=== PATIENT | male | born 2000 | race Caucasian/White ===

== ENCOUNTER 2024-06-05 10:00 | Outpatient (CLI) | payer MEDICAID, SELFPAY ==
[2024-06-05 15:06] LABS: Basophils # 0.1 K/mm3 (0-0.2); Basophils % 0.7 % (0.1-2.0); Eosinophils # 0.3 K/mm3 (0.0-0.4); Eosinophils % 3.6 % (0.1-12.0); Hematocrit 42.9 % (42.0-52.0); Hemoglobin 14.8 g/dL (14.1-18.0); Lymphocytes # 2.7 K/mm3 (0.7-4.5); Lymphocytes % 37.5 % (10-50); Mean Corpuscular HGB Conc 34.5 g/dL (31.8-35.4); Mean Corpuscular Volume 89.7 fl (80-94); Mean Platelet Volume 9.7 fl (7.4-10.4); Monocytes # 0.5 K/mm3 (0.1-1.0); Monocytes % 6.7 % (1.7-9.3); Neutrophils # 3.6 K/mm3 (1.8-7.8); Neutrophils % 51.1 % (37.0-80.0); Platelet Count 229 K/mm3 (142-424); Red Blood Count 4.78 M/mm3 (4.60-6.20); Red Cell Distribution Width 11.7 % (11.5-17.5); White Blood Count 7.1 K/mm3 (4.8-10.8)
[2024-06-05 15:16] LABS: D-Dimer < 0.25 ug/mL (0.0-0.5)
[2024-06-05 15:21] LABS: Albumin Level 4.9 g/dl (3.5-5.0); Chloride 106 mmol/L (98-107); Potassium 4.5 mmoL/L (3.5-5.1); Sodium 141 mmol/L (136-145)
[2024-06-05 15:24] LABS: Alanine Aminotransferase 15 U/L (12-78); Alkaline Phosphatase 68 U/L (38-126); Anion Gap 12.5 mEq/L (5-15); Aspartate Amino Transferase 25 U/L (17-59); Bilirubin,Direct 0.1 mg/dl (0.0-0.4); Bilirubin,Indirect 0.8 mg/dL (0.0-0.9); Bilirubin,Total 0.9 mg/dl (0.2-1.3); Bilirubin,Unconjugated 0.8 mg/dL (0.0-1.1); Blood Urea Nitrogen 16 mg/dl (9-20); Carbon Dioxide 27 mmol/L (22.0-30.0); Cholesterol 150 mg/dl (140-200); Estimated Glomerular Filt Rate 92 ml/min (>60); GFR (African American) 111 ML/MIN (>60); Glucose 79 mg/dl (74-100); Total Protein,Serum 6.8 g/dl (6.3-8.2); Triglycerides 74 mg/dl (30-150); VLDL Cholesterol 15 mg/dL (0-40)
[2024-06-05 15:25] LABS: Chol/HDL Ratio 3.9 (1-3.5); HDL Cholesterol 38 mg/dl (40-60); Magnesium 1.8 mg/dl (1.6-2.3)
[2024-06-05 15:38] LABS: Direct LDL Cholesterol 95.08 mg/dL (100-129)
[2024-06-05 15:46] LABS: Free T4 (Free Thyroxine) 0.91 ng/dl (0.78-2.19)
[2024-06-05 15:55] LABS: Microscopic, Urine URINE MICROSCOPIC (MICROSCOPIC)
[2024-06-05 15:59] LABS: Thyroid Stimulating Hormone 1.02 uIU/mL (0.465-4.68)
[2024-06-05 16:14] LABS: Appearance,Urine SL CLOUDY (Clear); Bilirubin,Urine Negative (Negative); Blood, Urine Negative (Negative); Color,Urine YELLOW (Yellow); Glucose,Urine (UA) Negative (Negative); Ketones,Urine Negative (Negative); Leukocyte Esterase,Urine Negative (Negative); Nitrate,Urine Negative (Negative); Protein,Urine Negative (Negative); Urobilinogen,Urine 0.2 EU/dl (0.2)
[2024-06-05 16:40] LABS: Amorphous Sediment,Urine 3+ /lpf; Bacteria,Urine Trace /lpf; Squamous Epithelial Cell,Urine Occasional #/hpf (0-5); WBC,Urine Occasional #/hpf (0-3)
[2024-06-08 00:20] LABS: Mycoplasma genitalium, NAA Negative (Negative); Neisseria gonorrhoeae, NAA Negative (Negative); Trich vag by NAA Negative (Negative)
== END 2024-06-05 23:59 | disposition home or self-care (01) ==
LOC: LAB 06-06 09:28
PROVIDERS: Internal Medicine; PCP Physician Assistant; Visit Provider Urology
DX: R55 Syncope and collapse (principal); R06.00 Dyspnea, unspecified; R35.0 Frequency of micturition; R30.0 Dysuria; N20.0 Calculus of kidney; Z82.41 Family history of sudden cardiac death
CPT/HCPCS: 36415; 80048; 80061; 80076; 81001; 83735; 84439; 84443; 85025; 85378; 87086; 87491; 87563; 87591; 87661

== ENCOUNTER 2024-06-13 10:59 | Outpatient (CLI) | payer MEDICAID, SELFPAY ==
--- NOTE | 2024-06-13 11:00 | XR_ITS ---
FINAL REPORT CLINICAL HISTORY: Renal stones FINDINGS: ABDOMEN SINGLE VIEW There is a nonspecific, nonobstructive bowel gas pattern. No abnormal dilatation is identified. There is a moderate amount of retained stool throughout the colon. There is no abnormal calcification. IMPRESSION: Moderate stool burden. No renal stones identified. Reviewed, Interpreted and Dictated by Sim Mcclellan MD Transcribed by Sayra Reina Authenticated and [facility]
--- NOTE | 2024-06-13 11:00 | US_ITS ---
FINAL REPORT CLINICAL HISTORY: .dysuria FINDINGS: RENAL ULTRASOUND Ultrasound images of the kidneys were obtained. The right kidney measures 9.0 cm in length. It is normal echogenicity. There is no hydronephrosis. There is a cyst in the lower pole of the right kidney measuring 1.2 cm. The left kidney measures 10.7 cm in length. It is normal echogenicity. There is no hydronephrosis. The spleen measures in the upper limits of normal in size at 13.1 cm. IMPRESSION: Right renal cyst. Spleen in the upper limits of normal in size Reviewed, Interpreted and Dictated by Sim Mcclellan MD Transcribed by Sayra Reina Authenticated and [facility]
== END 2024-06-13 23:59 | disposition home or self-care (01) ==
LOC: RAD 11:00
PROVIDERS: PCP Physician Assistant; Visit Provider Urology
DX: N20.0 Calculus of kidney (principal); R35.0 Frequency of micturition; R30.0 Dysuria
CPT/HCPCS: 74018; 76770

== ENCOUNTER 2024-06-22 11:17 | Outpatient (CLI) | payer MEDICAID, SELFPAY ==
--- NOTE | 2024-06-22 11:26 | CT_ITS ---
APPROVED REPORT Credit Report Checker: CLINICAL INDICATION Chest Pain TECHNIQUE Image Acquisition: A 128 slice MDCT scanner ([employer] In[employer] Medicinea View) was used for data acquisition. A noncontrast coronary calcium scan was performed. A CT attenuation threshold of 130 Hounsfield units (HU) was used for the detection of calcium in contiguous voxels of 1 sq mm in area to be counted as individual lesions. Bolus tracking in the ascending aorta with a threshold of 180 HU was performed. Immediately afterwards, ECG synchronized cardiac CT was then performed from the cardiac base to apex using retrospective gating with ECG tube current modulation. A total of 85 mL of Isovue 370 mg/mL contrast medium was administered at 5 mL/sec followed by a saline flush using a biphasic injection protocol. A tube voltage of 120 KVp was used. The patient received the following medications prior to the cardiac CT. 0.8 mg of sublingual nitroglycerin The average heart rate at the time of acquisition was 49 bpm and regular. Image Reconstruction Transaxial images were reconstructed at 0.67 mm slide thickness. Data was reviewed interactively on an advanced workstation capable of 2 and 3-dimensional displays in all conventional reconstruction formats, including multiplanar reformations, maximum intensity projections, curved multiplanar reformations, and volume rendered reconstructions. When applicable, selected routine images describing the relevant coronary anatomy and pathology were saved and sent to PACS. Complications None Technical Quality Overall image quality was good. Coronary artery opacification was adequate. Total DLP (Dose-Length Product) is 1425.1 mGy-cm. The reported value represents the total of one or more individual components during the CT acquisition of this date and at this time, and as such, the same value may appear in more than one CT report depending on the interpreting/reporting physicians. COMPARISON None FINDINGS CT Coronary Calcium Scoring LMA (Left Main Artery) = 0 LAD (Left Anterior Descending) = 0 LCX (Left Coronary Circumflex) = 0 RCA (Right Coronary Artery) = 0 Total Calcium Score = 0 using the AJ-130 method. The interpretation of the calcium heart score is based on the following continuum*: 0 = no calcified plaque detected (risk of coronary artery disease is very low ??? less than 5%) 1-10 = calcium detected in extremely minimal levels (risk of coronary diseases is still low ??? less than 10%) 11-100 = mild levels of plaque detected with certainty (mild or minimal narrowing of heart arteries is likely) 101-400 = definite,at least moderate levels of plaque detected (relatively high risk of a heart attack within 3-5 years) >401-999 = extensive levels of plaque detected (high risk of heart attack, high levels of vascular disease are present, high likelihood of at least one significant coronary narrowing) *The calcium heart score quantifies the burden of coronary calcification/plaque in the coronary arteries. The calcium heart score is not able to evaluate the presence or burden of non-calcified (i.e. soft) plaque. There is no identifiable calcification in the aortic valve, mitral annulus or mitral valve, pericardium, or myocardium. Coronary CT Angiography The coronary arterial system is right dominant. Quantitative Stenosis Grading: Left Main (LM): The left main originates normally from the left sinus of Valsalva. The LM bifurcates into the left anterior descending artery and left circumflex artery. The LM is patent with no evidence of atherosclerosis. Left Anterior Descending (LAD) and Diagonal Branches: The LAD gives off 3 diagonal branch(es). The LAD and its branches are patent with no evidence of atherosclerosis. There is no evidence of LAD-myocardial bridge. Left Circumflex (LCX) and Obtuse Marginals (OM): The LCX gives off 1 Obtuse Marginal (OM) branch(es). The LCX and its branches are patent with no evidence of atherosclerosis. Right Coronary Artery (RCA): The RCA originates normally from the right sinus of Valsalva. The RCA gives off a posterior descending artery (PDA) and posterolateral (PL) branches. The RCA and its branches are patent with no evidence of atherosclerosis. Non-Coronary Cardiac Findings: Analysis of the left ventricular (LV) structure and function was performed after 3-D reconstruction of the LV from axial images, with user-corrected automatic contouring for assessment of LV volumes and user-defined reconstruction from oblique planes for measurement of 3-D cardiac structure and function. -The left ventricle systolic function is normal. -There is no left atrial appendage filling defect. Two right pulmonary veins and two left pulmonary veins drain normally into the left atrium. -No pericardial thickening or calcification. -Central and branch pulmonary arteries in the [id number] are unremarkable. -Thoracic aorta within the visualized thoracic aortic-branches in the [id number] is unremarkable. Extracardiac Structures No significant extra-cardiac findings. Note, however, that this study is focused on the cardiac findings. IMPRESSION -Absence of coronary calcification with an Agatston score = 0 using the AJ-130 method. -No evidence of significant flow-limiting atherosclerosis of the coronary arteries. -No evidence of coronary anomalies or myocardial bridges. -CAD-RADS 0. Management recommendations per ACC/AHA guidelines*, as clinically appropriate. *Recommendations: CAD RADS 0: Reassurance. Consider non-atherosclerotic causes of chest pain. CAD RADS 1: Consider non-atherosclerotic causes of chest pain. Consider preventive therapy and risk factor modification. CAD RADS 2: Consider non-atherosclerotic causes of chest pain. Consider preventive therapy and risk factor modification, particularly for patients with nonobstructive plaque in multiple segments. CAD RADS 3: Consider further functional testing. Consider symptom-guided anti-ischemic and preventive pharmacotherapy as well as risk factor modification per published guideline statements. CAD RADS 4A: Consider further functional testing or invasive coronary angiography with revascularization per published guideline statements. Consider symptom-guided anti-ischemic and preventive pharmacotherapy as well as risk factor modification per published guideline statements. CAD RADS 4B: Invasive coronary angiography recommended with revascularization per published guideline statements. Consider symptom-guided anti-ischemic and preventive pharmacotherapy as well as risk factor modification per published guideline statements. CAD RADS 5: Consider invasive angiography and/or viability assessment with revascularization per published guideline statements. Consider symptom-guided anti-ischemic and preventive pharmacotherapy as well as risk factor modification per published guideline statements. CRITICAL RESULT None COMMUNICATION Per this written report The coronary and cardiac findings of this CCTA were reviewed, reported, and signed by Juan F Hare MD (Planner/Scheduler) Conclusion Electronically signed by : Christin Hare MD 06/26/2024 00:29:28
[2024-06-22 11:53] VITALS: BMI 19.9
[2024-06-22 11:54] VITALS: BP 108/69; PULSE 45; RESP 15; TEMP 36.1; O2SAT 100
[2024-06-22 12:05] VITALS: BP 132/84; PULSE 57; RESP 18; O2SAT 100
[2024-06-22] MEDS: NITROGLYCERIN 0.4MG SL TABLET SL (12:05)
[2024-06-22 12:15] VITALS: BP 102/59; PULSE 57; RESP 18; O2SAT 100
[2024-06-22] MEDS: 0.9 % SODIUM CHLORIDE 50 ML VIAL IV (13:18)
[2024-06-22] MEDS: IOPAMIDOL-370 (76%);100ML BOTTLE 85 ML IV (13:19)
[2024-06-22] MEDS: SODIUM CHLORIDE 0.9% 10ML SYR (RAD ONLY) 10 ML IV (13:19)
== END 2024-06-22 23:59 | disposition home or self-care (01) ==
LOC: RAD 11:18
PROVIDERS: PCP Physician Assistant; Visit Provider Internal Medicine
DX: R07.89 Other chest pain (principal); R55 Syncope and collapse; Z82.41 Family history of sudden cardiac death
CPT/HCPCS: 75574; Q9967

== ENCOUNTER 2024-07-04 11:19 | Outpatient (CLI) | payer MEDICAID, SELFPAY ==
--- NOTE | 2024-07-04 | CA_ITS ---
APPROVED REPORT Exam: Exercise Treadmill Technologist: Martina Das Ht: 7 ft 11 in Wt: 141 lbs BSA: 2.25 m2 HR: 54 bpm BP: 114/64 mmHg Stress Test Details Test: Exercise stress testing was performed using a Herminio protocol. HR Resting HR: 54 bpm Max Heart Rate (APMHR): 196 bpm Max HR Achieved: 174 bpm Target HR (85% APMHR): 167 bpm % of APMHR: 89 Recovery HR: 93 bpm HR response to stress: Normal HR response to stress BP Resting BP: 114.0/64.0 mmHg Max BP: 150.0/76.0 mmHg Recovery BP: 139.0/70.0 mmHg BP response to stress: Normal blood pressure response to stress. ECG Resting ECG: Normal sinus rhythm Stress EC.[address] depression Clinical Exercise duration: 11:00 min Exercise capacity: 11.8 METs Overall Exercise Capacity for Age: Average Stress ECG Conclusion Patient walked 11 minutes. Test stopped due to shortness of air, leg fatigue. METs 11.8 Symptoms: No chest pain Arrhythmias/Ectopy: None ST-T Changes: < 1.[address] segment changes. Conclusion: Max HR 174 at peak stress. Good HR and BP augmentation with exercise (no evidence of chronotropic incompetence). Average exercise capacity for age and sex matched peers No evidence of ischemia on ECG at peak stress Electronically signed by : Christin Hare MD 07/05/2024 12:04:15
== END 2024-07-04 23:59 | disposition home or self-care (01) ==
LOC: RT 11:19
PROVIDERS: PCP Physician Assistant; Visit Provider Internal Medicine
DX: R55 Syncope and collapse (principal); R06.00 Dyspnea, unspecified; Z82.41 Family history of sudden cardiac death
CPT/HCPCS: 93017; 93018

== ENCOUNTER 2024-07-12 09:08 | Outpatient (CLI) | payer MEDICAID, SELFPAY ==
--- NOTE | 2024-07-12 | CA_ITS ---
APPROVED REPORT EXAM: Comprehensive 2D, Doppler, and color-flow Echocardiogram Airplane Pilot: Tamiko Flores, RT(R) Ht: 5 ft 11 in Wt: 141lbs BSA: 1.82 BP: 111/61 mmHg Indications: CP, smoker, SOB, family history of sudden cardiac . Ordered as a bubble study. Echo Enhancing Agent Indication: Rule out Shunt Agent(s) / Amount(s) Used: Agitated Saline 20 cc 2D Dimensions LVEF (Rangel's) 63.30 % M: 52 - 72 LV Volume 101.10 mL M: 62 - 150 LV Volume Index 55.5 mL/m2 M: 34 - 74 LA Volume 14.80 mL LA Volume Index 8.13 mL/m2 (M/F) 16-34 EF AP4 62.40 % EF AP2 64.5 % EF BP 63.3 % GL Strain -20.1 % M-Mode Dimensions RVDd 2.35 cm (0.9-2.6) LA Diam 3.03 cm (1.9-4.0) LVDd 4.45 cm (3.5-5.7) LVDs 3.31 cm (3.5-5.7) IVSd 0.67 cm (0.6-1.1) PWd 0.67 cm (0.6-1.1) EF (Teich) 50.60% FS 25.60% EDV (Teich) 90.10 mL TAPSE 1.41 (<1.7) ESV (Teich) 44.50 mL LV Diastology E Decel Time 210 (160-240 msec) E/A Ratio 2.4 Mitral Valve MV E Max Lv. 88.0 (40-130 cm/s) MV A Velocity 37.0 (40-130 cm/s) E/A Ratio 2.39 MV PHT 62.0 ms Left Ventricle The left ventricle is normal size. The left ventricular systolic function is normal. The left ventricular ejection fraction is within the normal range. There is normal left ventricular wall thickness. There is normal LV segmental wall motion. The left ventricular diastolic function is normal. LVEF is 60%. Right Ventricle The right ventricle is normal size. The right ventricular systolic function is normal. Atria The left atrium size is normal. The right atrium size is normal. There is no Doppler evidence of interatrial shunt. Agitated saline administration demonstrates no evidence of interatrial shunt. Aortic Valve The aortic valve is normal in structure. There is no aortic valvular stenosis. No aortic regurgitation is present. Mitral Valve The mitral valve is normal in structure. No evidence of mitral valve stenosis. There is no mitral valve regurgitation noted. Tricuspid Valve Tricuspid valve is grossly normal in structure and function. Trace tricuspid regurgitation. There is insufficient TR jet to estimate RVSP. Pulmonic Valve The pulmonary valve is normal in structure. Trace pulmonic regurgitation. Great Vessels The aortic root is normal in size. IVC is normal in size and collapses >50% with inspiration. Pericardium There is no pericardial effusion. Other Information Study Quality: Adequate Conclusion Normal biventricular systolic function. No significant valvular stenosis or regurgitation. There is no Doppler evidence of interatrial shunt. Agitated saline administration demonstrates no evidence of interatrial shunt. Electronically signed by : Christin Hare MD 07/18/2024 11:58:16
== END 2024-07-12 23:59 | disposition home or self-care (01) ==
LOC: RT 09:08
PROVIDERS: PCP Physician Assistant; Visit Provider Internal Medicine
DX: R55 Syncope and collapse (principal); R06.00 Dyspnea, unspecified; Z82.41 Family history of sudden cardiac death
CPT/HCPCS: 93306

== ENCOUNTER 2024-07-27 11:01 | Day surgery (SDC) | payer MEDICAID, SELFPAY ==
[2024-07-27 11:38] VITALS: BP 105/60; PULSE 51; RESP 16; TEMP 36.7; O2SAT 99; BMI 19.5
[2024-07-27] MEDS: LACTATED RINGERS 1000ML 1,000 ML 50 ML IV (11:51)
--- NOTE | 2024-07-27 12:11 | EXP.ANES.CKL ---
[facility] Disclaimer: The information contained in this section may have been updated after the patient was seen, as this information can be updated by other users. Medical History Kidney stone Diverticulitis History of gastroesophageal reflux (GERD) Allergies History of anemia Dyspnea Syncope Family history of sudden cardiac in mother Surgical History History of surgery History of tonsillectomy H/O ureteroscopy Family History Other Family history of myocardial infarction Social History Smoking Status: Current some day smoker alcohol intake: never substance use type: denies use current occupational status: employed Travel in the last 8 weeks: None caffeine: Yes [facility] Anesthesia Checklist Patient Identification Patient Identification: Arm Band Structural Data Admitted From: Home Planned Operative Procedure/s: EGD Consent for Planned Operative Procedure(s) Verified: Yes Verified Documents: Surgical Consent and History and Physical NPO Status Verified Time NPO: 00:00 Additional verifications Anesthesia Reactions: No Hx Blood Transfusions: No Blood Transfusion Reaction: No Airway Assessment Mallampati Score:: Class II C-Spine Mobility Assessed: Yes TMJ Mobility Assessed: Yes Dentition: Good Dentition Neurological Assessment Level of Consciousness: Awake, Alert and Appropriate Anesthesia Plan Anesthesia Risk discussed: Yes Anesthesia Plan: Verified ASA Class: II Anesthesia Type: MAC
--- NOTE | 2024-07-27 12:19 | P.HP_ITS ---
History of Present Illness *Admission Date: 07/27/24 *History of present illness: Mr. Saldivar is a 24-year-old gentleman who is here for diagnostic EGD secondary to epigastric abdominal pain, nausea, vomiting and reflux. He also has some constipation and left lower quadrant pain. 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 The examination is deemed medically necessary for diagnostic EGD. The patient has been seen, interviewed and examined prior to the procedure by both myself and the anesthesia provider. [facility] Disclaimer: The information contained in this section may have been updated after the p jerry was seen, as this information can be updated by other users. Medical History (Updated 07/27/24 @ 12:21 by Zay Dubon II, MD) Kidney stone Diverticulitis History of gastroesophageal reflux (GERD) Allergies History of anemia Dyspnea Syncope Family history of sudden cardiac in mother Surgical History History of surgery History of tonsillectomy H/O ureteroscopy Family History Other Family history of myocardial infarction Social History (Updated 07/27/24 @ 12:12 by Maciej Parmar CRNA) Smoking Status: Current some day smoker alcohol intake: never substance use type: denies use current occupational status: employed Travel in the last 8 weeks: None caffeine: Yes Have you lived/traveled outside [place] in past 30 days?: No Contact w/someone who lives/traveled outside US past 30 days?: No Exposure to someone with infectious disease in past 14 days?: No Do you have a fever (greater than 100.4 F or 38 C)?: No Have you tested positive for COVID-19: No Exposed to someone with COVID-19 in past 14 days?: No Do you have a sore throat?: No Do you have a cough?: No Do you have any weakness?: No Are you experiencing any nausea/vomitting?: No Do you have any diarrhea?: No Are you experiencing any unusual bleeding?: No Do you have any muscle aches/pain?: No Do you have any abdominal pain?: No Are you experiencing loss of taste or smell?: No Other Medical History Have you received the Flu Vaccine for this season: No Have you received the Pneumonia Vaccine: No Review of Systems Review of Systems Review of systems (narrative): Negative *Cardiovascular Comments: Negative *Gastrointestinal Comments: Negative *Genitourinary Comments: Negative *Musculoskeletal Comments: Negative *Neurologic Comments: Negative Meds Home Medications and Allergies Home Medications ?Medication ?Instructions ?Recorded ?Confirmed ?Type cholecalciferol (vitamin D3) 1,250 1,250 mcg PO WEEKLY 06/05/24 07/27/24 History mcg (50,000 unit) capsule cholecalciferol (vitamin D3) 50 50 mcg PO DAILY 06/05/24 07/27/24 History mcg (2,000 unit) capsule oxybutynin chloride 10 mg 10 mg PO DAILY 90 days #90 tabs 07/24/24 07/27/24 Rx tablet,extended release 24 hr tamsulosin 0.4 mg capsule (Flomax) 0.4 mg PO DAILY 90 days #90 caps 07/24/24 07/27/24 Rx New Prescriptions to Start Prescriptions: Allergies Allergy/AdvReac Type Severity Reaction Status Date / Time Penicillins Allergy Mild Fatigued Verified 07/27/24 11:36 Exam Data for Last 24 hours Vital signs and Labs for Last 24 Hours: Temp Pulse Resp BP Pulse Ox O2 Del Method 98.0 F 51 L 16 105/60 L 99 Room Air 07/27/24 11:38 07/27/24 11:38 07/27/24 11:38 07/27/24 11:38 07/27/24 11:38 07/27/24 11:38 I & O for Last 24 hours: Intake & Output 07/24/24 07/25/24 07/26/24 07/27/24 23:59 23:59 23:59 23:59 Weight 140 lb *Routine HEENT Exam Head: Present normocephalic Eye: Present EOMI and PERRL ENT: Present mucous membranes moist *Routine Neck Exam Neck: Present supple *Routine Respiratory Exam Respiratory: Present CTA bilaterally *Routine Cardiovascular Exam Cardiovascular: Present RRR *Routine Abdominal Exam Abdominal: Present soft and normoactive bowel sounds; Absent tenderness *Routine Rectal Exam Rectal:: deferred *Routine Genitalia Exam Genitalia:: deferred *Routine Extremities Exam Extremities: Absent cyanosis, clubbing or edema *Routine Skin Exam Skin: Present warm; Absent rash *Routine Neurological Exam Neurological: Present alert and oriented X3 Assessment and Plan *Assessment and plan (1) Epigastric pain: Status: Acute Category: Medical Code(s): R10.13 - Epigastric pain (2) Nausea & vomiting: Status: Acute Category: Medical Code(s): R11.2 - Nausea with vomiting, unspecified (3) Atypical chest pain: Status: Acute Category: Medical Code(s): R07.89 - Other chest pain (4) Bloating: Status: Acute Category: Medical Code(s): R14.0 - Abdominal distension (gaseous) (5) GERD (gastroesophageal reflux disease): Status: Acute Category: Medical Code(s): K21.9 - Gastro-esophageal reflux disease without esophagitis Plan A/P: 1. Epigastric abdominal pain with nausea, vomiting, bloating and dyspepsia is the preprocedural diagnosis. The patient will be anesthetized/sedated using MAC sedation. The patient has been seen and examined. Cardiac and lung assessment prior to the examination is stable. Proceed with planned diagnostic EGD
[2024-07-27 12:30] VITALS: O2SAT 100
--- NOTE | 2024-07-27 12:30 | P.PCN_ITS ---
[facility] Procedure Note Date: 07/27/24 Procedure Note:: Upper Endoscopy Procedure Report: Esophagogastroduodenoscopy with cold biopsies and TTS balloon dilation Endoscopost: Zay Dubon II, MD Referring Physician: Diana Mckeon PA-C Date of Procedure: July 27, 2024 Equipment: Olympus GIF 190 standard upper endoscope Sedation: MAC sedation Indications: Mr. Saldivar is a 24-year-old gentleman with dyspepsia. He reports epigastric abdominal pain, bloating, belching, nausea, early satiety and occasional vomiting. He does get some heartburn and pyrosis. He has occasional dysphagia and globus sensation. The patient also has some incomplete bowel evacuation and constipation.He does report some noncardiac chest pain. Coronary CT angiography was essentially. The patient's CT scan of the abdomen and pelvis on the ED visit except for some paramedian mesentery lymph nodes nonspecific suggestive of mesenteric panniculitis. He does have straining with excessive wiping. He notes some blood in his stool with a little more mucus. Procedure: Prior to the procedure, a history and physical exam was performed, and patient's medications and allergies were reviewed. The risks, benefits and alternatives of the sedation and procedure were discussed with the patient. All questions were answered and informed consent was obtained. The patient was brought to the procedure room. Patient identification and proposed procedure were verified by the physician and the nurse. The patient was placed in a left lateral decubitus position and the scope was passed under direct vision. Throughout the procedure, the patient's blood pressure, pulse, and oxygen saturations were monitored continuously. The upper GI endoscopy was accomplished without difficulty. The patient tolerated the procedure well. Findings: The scope was passed directly into the upper esophagus and advanced to the third portion of the duodenum. The post bulbar duodenum, ampulla and duodenal bulb were normal with normal mucosa and conniventes. The scope was withdrawn through a normal duodenal bulb and pylorus into the stomach. There was some mild pylorospasm. There was also bile reflux with mild linear reactive gastropathy of the prepyloric antrum. The remainder of the body and fundus of the stomach were normal. Upon retroflexion there was a very small sliding 1 to 2 cm hiatal hernia. Biopsies were taken from the antrum. The scope was then withdrawn into the esophagus. There were very short tongues of salmon-colored mucosa that do not meet criteria for Maravilla's but biopsies were taken from the GE junction. There was no evidence of reflux esophagitis, Schatzki's ring, corrugation or furrowing. There were tertiary contractions and evidence of mild to moderate esophageal dysmotility. The entire esophagus was dilated to 60 Swiss/20 mm with a TTS hydrostatic balloon. There was some mild resistance at the cricopharyngeus. The remainder of the esophageal mucosa was normal. Impression: 1. Mild cricopharyngeal spasm 2. Nonerosive GERD with mild to moderate esophageal dysmotility and very small sliding 1 to 2 cm hiatal hernia 3. Bile reflux with mild prepyloric antral gastropathy and pylorospasm Plan: I will follow-up the biopsies. I would recommend dietary measures, fiber bowel regimen, Iberogast and neuromodulation (buspirone) for his functional dyspepsia. I will discuss the findings with the patient and family.
[2024-07-27 12:43] VITALS: BP 107/56; PULSE 70; RESP 14; TEMP 36.1; O2SAT 97
[2024-07-27 12:53] VITALS: BP 101/55; PULSE 50; RESP 16; O2SAT 99
[2024-07-27 13:03] VITALS: BP 129/80; PULSE 47; RESP 16; O2SAT 100
[2024-07-27 13:13] VITALS: BP 132/82; PULSE 50; RESP 18; O2SAT 100
== END 2024-07-27 13:29 | disposition home or self-care (01) ==
PROVIDERS: PCP Physician Assistant; Visit Provider Internal Medicine Gastroenterology
PROC: 0DJ08ZZ Inspection of Upper Intestinal Tract, Via Natural or Artificial Opening Endoscopic (ICD-10-PCS; CPT 43239; principal; 2024-07-27 12:00)
DX: J39.2 Other diseases of pharynx (principal); K22.4 Dyskinesia of esophagus; K44.9 Diaphragmatic hernia without obstruction or gangrene; K31.9 Disease of stomach and duodenum, unspecified; R10.13 Epigastric pain; R11.2 Nausea with vomiting, unspecified; R07.89 Other chest pain; K21.9 Gastro-esophageal reflux disease without esophagitis; Z72.0 Tobacco use
CPT/HCPCS: 43239; 43249; C1726; J7120